=== PATIENT | male | born 1960 | race American Indian/Alaskan Native ===

== ENCOUNTER 2024-11-07 17:58 | Inpatient (IN) | payer BC, OTHER ==
[~2024-11-07] VITALS: Ht 167.6 cm; Wt 105.6 kg
[~2024-11-07 17:58] MED LIST: CYCL-1 PO
[2024-11-07] MEDS ORDERED: DICL100G59 TOP (18:24)
[2024-11-07] MEDS ORDERED: OMEP20CA16 PO (18:24)
[2024-11-07] MEDS: mag hydrox/Alum hydrox/simeth 30ml oral suspension PO ONE (18:37)
[2024-11-07] MEDS: LIDOcaine 2% Viscous 15ml cup MM ONE (18:37)
[2024-11-07 18:45] LABS: EOSINOPHILS # (AUTO) 0.3 X10'3 (0-0.9); HEMOGLOBIN 14.4 g/dl (14.0-17.9); MEAN CORPUSCULAR HGB CONC 33.5 g/dL (33.0-36.5); MONOCYTES % (AUTO) 8.2 % (2-12); NEUTROPHILS # (AUTO) 7.6 X10'3 (1.8-7.7); RED BLOOD COUNT 4.74 X10'6 (4.70-6.10); RED CELL DISTRIBUTION WIDTH 16.9 % (11.5-14.5)
[2024-11-07 18:46] LABS: BASOPHILS # (AUTO) 0.2 X10'3 (0-0.2); BASOPHILS % (AUTO) 1.4 % (0-1); EOSINOPHILS % (AUTO) 2.2 % (0-6); LYMPHOCYTES # (AUTO) 2.8 X10'3 (1.1-4.8); LYMPHOCYTES % (AUTO) 23.7 % (21-51); MEAN CORPUSCULAR HEMOGLOBIN 30.4 PG (27.0-31.0); MEAN CORPUSCULAR VOLUME 90.7 FL (78-98); MEAN PLATELET VOLUME 9.1 FL (7.4-10.4); NEUTROPHILS % (AUTO) 64.5 % (42-75); PLATELET COUNT 286 X10'3 (140-440); WHITE BLOOD COUNT 11.8 X10'3 (4.5-11.0)
[2024-11-07 18:51] LABS: D-DIMER 0.47 MG/L FEU (0-0.50)
[2024-11-07 19:01] LABS: ALBUMIN 3.7 G/DL (3.4-5.0); ANION GAP 9 (8-16); BLOOD UREA NITROGEN 15 MG/DL (7-18); BUN/CREATININE RATIO 13.8 (10.0-20.0); CALCIUM 9.1 MG/DL (8.5-10.1); CHLORIDE 105 MMOL/L (99-107); CREATININE 1.09 MG/DL (0.60-1.10); GLUCOSE 104 MG/DL (70-104); MAGNESIUM 1.9 MG/DL (1.5-2.4); POTASSIUM 3.5 MMOL/L (3.5-5.1); PRO BRAIN NATRIURETIC PEPTIDE 591 PG/ML (0-125); SODIUM 141 MMOL/L (135-145); TOTAL CARBON DIOXIDE 27.5 MMOL/L (24-32); eCRCL 63 ML/MIN; eGFR 69 ML/MIN
[2024-11-07] MEDS: heparin 10,000 units/1 ML INJ IV ONE ×2 (19:45→20:55)
[2024-11-07] MEDS ORDERED: potassium Cl 40MEQ/1/2NS 520ml 520 ML IV PRN (20:05)
[2024-11-07] MEDS ORDERED: morphine 2 MG/ML inj. syringe IV PRN (20:05)
[2024-11-07] MEDS: PERFLUTREN PROTEIN-A MICROSPHR (Optison) 0.22 MG/ML 3ML VIAL IV ONE (20:05)
[2024-11-07] MEDS ORDERED: potassium Cl 20 mEq SR tablet PO PRN ×2 (20:05)
[2024-11-07] MEDS ORDERED: magnesium sulf-water 4G/100mL 100 ML IV PRN (20:05)
[2024-11-07] MEDS ORDERED: magnesium Cl slow-release 64mg tablet PO PRN (20:05)
[2024-11-07] MEDS ORDERED: magnesium sulf-water 2g/50mL 50 ML IV PRN (20:05)
[2024-11-07 20:13] LABS: APTT 27 SECONDS (22-32); PROTHROMBIN TIME 10.6 SECONDS (9.0-12.0)
[2024-11-07] MEDS: MESSAGE TO NURSING IV ONE (20:35)
[2024-11-07 20:38] LABS: HEMOGLOBIN A1C 5.7 % (4.5-6.2)
[2024-11-07] MEDS: heparin 25,000 UNIT/250ml bag 250 ML IV PRN (20:57)
[2024-11-07] MEDS: aspirin 325mg tablet PO ONE (21:23)
[2024-11-07] MEDS: clopidogrel 75mg tablet PO SCH (23:18)
[2024-11-07] MEDS: metoprolol tartrate 25mg tablet PO SCH (23:19)
[2024-11-08] MEDS ORDERED: ASPI-1264 PO (00:27)
[2024-11-08] MEDS: magnesium oxide 400mg tablet PO ONE (00:46)
[2024-11-08] MEDS: METHYL SALICYLATE 15%/MENTHOL 1% CREAM-- 85GM TUBE TOP SCH (00:47)
[2024-11-08] MEDS ORDERED: nitroGLYCERIN 0.4mg SUBLingual tab SL PRN (00:50)
[2024-11-08 02:26] LABS: EOSINOPHILS # (AUTO) 0.3 X10'3 (0-0.9); HEMOGLOBIN 13.9 g/dl (14.0-17.9); LYMPHOCYTES # (AUTO) 2.9 X10'3 (1.1-4.8); MEAN PLATELET VOLUME 9.3 FL (7.4-10.4)
[2024-11-08 02:28] LABS: BASOPHILS # (AUTO) 0.2 X10'3 (0-0.2); BASOPHILS % (AUTO) 1.3 % (0-1); EOSINOPHILS % (AUTO) 2.2 % (0-6); HEMATOCRIT 41.3 % (42.0-52.0); LYMPHOCYTES % (AUTO) 23.8 % (21-51); MEAN CORPUSCULAR HEMOGLOBIN 30.2 PG (27.0-31.0); MEAN CORPUSCULAR HGB CONC 33.7 g/dL (33.0-36.5); MEAN CORPUSCULAR VOLUME 89.7 FL (78-98); MONOCYTES # (AUTO) 0.8 X10'3 (0-0.9); MONOCYTES % (AUTO) 6.7 % (2-12); NEUTROPHILS # (AUTO) 8.1 X10'3 (1.8-7.7); PLATELET COUNT 275 X10'3 (140-440); RED BLOOD COUNT 4.61 X10'6 (4.70-6.10); RED CELL DISTRIBUTION WIDTH 17.3 % (11.5-14.5); WHITE BLOOD COUNT 12.2 X10'3 (4.5-11.0)
[2024-11-08 02:51] LABS: ALANINE AMINOTRANSFERASE 30 U/L (12-78); ALBUMIN 3.5 G/DL (3.4-5.0); ALBUMIN/GLOBULIN RATIO 0.8 (1.1-1.5); ALKALINE PHOSPHATASE 92 IU/L (46-116); ANION GAP 7 (8-16); ASPARTATE AMINO TRANSFERASE 35 U/L (10-37); BILIRUBIN,TOTAL 0.4 MG/DL (0.1-1.0); BLOOD UREA NITROGEN 14 MG/DL (7-18); BUN/CREATININE RATIO 13.7 (10.0-20.0); CALCIUM 9.1 MG/DL (8.5-10.1); CHLORIDE 104 MMOL/L (99-107); CHOL/HDL RATIO 4.5 (0.00-4.99); CHOLESTEROL 218 MG/DL (0-200); CREATININE 1.02 MG/DL (0.60-1.10); GLUCOSE 107 MG/DL (70-104); HDL CHOLESTEROL 48 MG/DL (35-60); LDL CHOLESTEROL 143 MG/DL (50-100); PHOSPHORUS 3.2 MG/DL (2.3-4.5); POTASSIUM 3.8 MMOL/L (3.5-5.1); SODIUM 139 MMOL/L (135-145); THYROID STIMULATING HORMONE 2.68 ulU/ml (0.34-4.50); TOTAL CARBON DIOXIDE 27.7 MMOL/L (24-32); TOTAL PROTEIN 8.1 G/DL (6.4-8.2); TRIGLYCERIDES 111 MG/DL (20-135); eCRCL 68 ML/MIN; eGFR 74 ML/MIN
[2024-11-08 04:06] LABS: PROTHROMBIN TIME 10.9 SECONDS (9.0-12.0)
[2024-11-08] MEDS: MESSAGE TO NURSING IV ONE ×3 (04:50→19:50)
[2024-11-08] MEDS: heparin 10,000 units/1 ML INJ IV PRN (05:03)
[2024-11-08] MEDS: K and/or MAG REPLACEMENT MC SCH (08:18)
[2024-11-08] MEDS: atorvastatin 20mg tablet PO SCH (08:32)
[2024-11-08] MEDS: aspirin 81mg, enteric-coated 1 TAB TABLET.DR PO SCH (08:34)
[2024-11-08 12:02] LABS: APTT 35 SECONDS (22-32)
[2024-11-08 17:46] VITALS: BP 119/80; PULSE 86; RESP 18; TEMP 98.2; O2SAT 98
[2024-11-08 18:00] VITALS: BP 140/86; PULSE 85; RESP 20; TEMP 98.5; O2SAT 96
[2024-11-08 19:01] VITALS: RESP 18; O2SAT 97
[2024-11-08 20:00] VITALS: RESP 13; O2SAT 96
[2024-11-08 22:00] VITALS: BP 145/83; PULSE 82; RESP 21; TEMP 97.7; O2SAT 98
[2024-11-09] VITALS (16 sets, daily range): BP systolic 105–154; BP diastolic 67–99; PULSE 62–81; RESP 13–23; TEMP 97.6–98.2; O2SAT 94–99
[2024-11-09 02:13] LABS: BASOPHILS # (AUTO) 0.1 X10'3 (0-0.2); BASOPHILS % (AUTO) 0.8 % (0-1); EOSINOPHILS # (AUTO) 0.3 X10'3 (0-0.9); EOSINOPHILS % (AUTO) 2.7 % (0-6); HEMATOCRIT 42.5 % (42.0-52.0); HEMOGLOBIN 14.2 g/dl (14.0-17.9); LYMPHOCYTES # (AUTO) 3.3 X10'3 (1.1-4.8); LYMPHOCYTES % (AUTO) 30.1 % (21-51); MEAN CORPUSCULAR HEMOGLOBIN 29.9 PG (27.0-31.0); MEAN CORPUSCULAR HGB CONC 33.4 g/dL (33.0-36.5); MEAN CORPUSCULAR VOLUME 89.3 FL (78-98); MEAN PLATELET VOLUME 9.4 FL (7.4-10.4); MONOCYTES % (AUTO) 8.7 % (2-12); NEUTROPHILS # (AUTO) 6.4 X10'3 (1.8-7.7); NEUTROPHILS % (AUTO) 57.7 % (42-75); PLATELET COUNT 265 X10'3 (140-440); RED BLOOD COUNT 4.76 X10'6 (4.70-6.10); RED CELL DISTRIBUTION WIDTH 17.1 % (11.5-14.5); WHITE BLOOD COUNT 11.1 X10'3 (4.5-11.0)
[2024-11-09 02:27] LABS: APTT 42 SECONDS (22-32); INR 1.1 INR; PROTHROMBIN TIME 11.4 SECONDS (9.0-12.0)
[2024-11-09 02:28] LABS: ALANINE AMINOTRANSFERASE 31 U/L (12-78); ALBUMIN 3.4 G/DL (3.4-5.0); ALBUMIN/GLOBULIN RATIO 0.7 (1.1-1.5); ALKALINE PHOSPHATASE 96 IU/L (46-116); ANION GAP 6 (8-16); ASPARTATE AMINO TRANSFERASE 31 U/L (10-37); BILIRUBIN,TOTAL 0.6 MG/DL (0.1-1.0); BLOOD UREA NITROGEN 15 MG/DL (7-18); BUN/CREATININE RATIO 14.6 (10.0-20.0); CHLORIDE 105 MMOL/L (99-107); CREATININE 1.03 MG/DL (0.60-1.10); GLUCOSE 107 MG/DL (70-104); PHOSPHORUS 3.5 MG/DL (2.3-4.5); POTASSIUM 3.8 MMOL/L (3.5-5.1); SODIUM 139 MMOL/L (135-145); TOTAL CARBON DIOXIDE 27.8 MMOL/L (24-32); TOTAL PROTEIN 8.2 G/DL (6.4-8.2); eCRCL 67 ML/MIN; eGFR 73 ML/MIN
[2024-11-09] MEDS: MESSAGE TO NURSING IV ONE (02:55)
[2024-11-09] MEDS ORDERED: LIDOcaine 1% (10mg/ml) 2ml vial ONE (07:53)
[2024-11-09] MEDS ORDERED: fentaNYL/PF 50MCG/1 ML 2ML syringe ONE (07:53)
[2024-11-09] MEDS ORDERED: verapamil 2.5 mg/ml inj IV ONE (07:53)
[2024-11-09] MEDS ORDERED: midazolam 1 mg/ML 2ml injection ONE (07:53)
[2024-11-09] MEDS ORDERED: heparin 1,000unit/ml 10ml vial 10 ML ONE (07:54)
[2024-11-09] MEDS ORDERED: iohexol 350MG/ML 100ml bottle IV ONE (07:54)
[2024-11-09] MEDS ORDERED: nitroGLYCERIN 500mcg/5mL D5W 5 ML IV ONE (07:56)
[2024-11-09] MEDS ORDERED: ondansetron/PF 4mg/2ml inj IV PRN (09:45)
[2024-11-09] MEDS ORDERED: OXAZEpam 15mg capsule PO PRN (09:45)
[2024-11-09] MEDS ORDERED: HYDROcodone/acetaminophen 10/325mg tab PO PRN (09:45)
[2024-11-09] MEDS ORDERED: HYDROcodone/acetaminophen 5mg/325mg tablet PO PRN (09:45)
[2024-11-09] MEDS ORDERED: proCHLORperazine 10 MG/2 ml inj IV PRN (09:45)
[2024-11-09] MEDS ORDERED: aspirin 325mg tablet PO PRN (09:45)
[2024-11-09] MEDS: MESSAGE TO NURSING PO ONE ×2 (11:55)
[2024-11-09] MEDS: MESSAGE TO PHARMACY IJ ONE (11:55)
[2024-11-09] MEDS ORDERED: cefazolin 2gm/D5W 100mL 100 ML IV ONE (11:55)
[2024-11-09] MEDS ORDERED: VANCOMYCIN 1GM 200ML H20 (PEG) 200 ML IV ONE (11:55)
[2024-11-09] MEDS ORDERED: ceFAZolin 2gm in dextrose, iso 50 ML IV ONE (12:12)
[2024-11-09] MEDS: metoprolol succinate 25mg (24-HOUR) SR. Tablet PO SCH (12:29)
[2024-11-09] MEDS: DICLOFENAC SODIUM 1% gel 1 APPLIC APPLIC TP SCH (13:00)
[2024-11-09] MEDS ORDERED: ringers solution, lacted 1,000 ML IV ONE (16:40)
[2024-11-09 17:39] LABS: ABG BASE EXCESS 0.1 mmol/L (-2.0-3.0); ABG HCO3 24.2 mmol/L (21.0-28.0); ABG OXYGEN SATURATION 93.4 % (94.0-98.0); ABG PCO2 (T) 37.5 mmHg (35.0-48.0); ABG PH (T) 7.427 (7.350-7.450); ABG PO2 (T) 66.4 mmHg (83.0-108.0); ALLEN'S TEST POSITIVE; FCOHb 1.2 % (0.5-1.5); FHHb 6.5 % (0.0-5.0); FLOW 0 L/min; FMetHb 0.3 % (0.0-1.5); MODE ROOM AIR; PATIENT TEMPERATURE 36.8; TOTAL HEMOGLOBIN 15.2 G/dl (13.5-17.5)
[2024-11-09] MEDS: metoprolol tartrate 25mg tablet PO SCH (21:51)
[2024-11-10] VITALS (8 sets, daily range): BP systolic 101–134; BP diastolic 63–93; PULSE 64–80; RESP 15–21; TEMP 97.6–97.9; O2SAT 94–98
[2024-11-10] MEDS: mupirocin 2% nasal ointment 1gm UD NS ONE (05:05)
[2024-11-10] MEDS: famotidine/PF 10 mg/ml inj IV ONE (05:05)
[2024-11-10] MEDS ORDERED: LORazepam 2 mg/ml vial IV ONE (06:00)
[2024-11-10] MEDS: pantoprazole 40mg Tablet.DR PO SCH (07:43)
[2024-11-10] MEDS ORDERED: clopidogrel 75mg tablet PO SCH (08:00)
[2024-11-10 08:01] LABS: BASOPHILS # (AUTO) 0.1 X10'3 (0-0.2); EOSINOPHILS # (AUTO) 0.4 X10'3 (0-0.9); EOSINOPHILS % (AUTO) 3.5 % (0-6); MEAN CORPUSCULAR HGB CONC 33.4 g/dL (33.0-36.5); NEUTROPHILS # (AUTO) 7.2 X10'3 (1.8-7.7)
[2024-11-10 08:03] LABS: APTT 26 SECONDS (22-32); HEMATOCRIT 41.8 % (42.0-52.0); INR 1.1 INR; LYMPHOCYTES # (AUTO) 2.2 X10'3 (1.1-4.8); LYMPHOCYTES % (AUTO) 20.2 % (21-51); MEAN CORPUSCULAR HEMOGLOBIN 30.4 PG (27.0-31.0); MEAN CORPUSCULAR VOLUME 91.1 FL (78-98); MEAN PLATELET VOLUME 9.9 FL (7.4-10.4); MONOCYTES % (AUTO) 9.2 % (2-12); NEUTROPHILS % (AUTO) 66.1 % (42-75); PLATELET COUNT 263 X10'3 (140-440); RED BLOOD COUNT 4.59 X10'6 (4.70-6.10); RED CELL DISTRIBUTION WIDTH 17.1 % (11.5-14.5); WHITE BLOOD COUNT 10.8 X10'3 (4.5-11.0)
[2024-11-10 08:16] LABS: ALANINE AMINOTRANSFERASE 29 U/L (12-78); ALBUMIN 3.3 G/DL (3.4-5.0); ALBUMIN/GLOBULIN RATIO 0.7 (1.1-1.5); ALKALINE PHOSPHATASE 92 IU/L (46-116); ANION GAP 8 (8-16); ASPARTATE AMINO TRANSFERASE 23 U/L (10-37); BILIRUBIN,TOTAL 0.7 MG/DL (0.1-1.0); BLOOD UREA NITROGEN 15 MG/DL (7-18); BUN/CREATININE RATIO 13.6 (10.0-20.0); CALCIUM 8.8 MG/DL (8.5-10.1); CHLORIDE 104 MMOL/L (99-107); GLUCOSE 95 MG/DL (70-104); MAGNESIUM 2.1 MG/DL (1.5-2.4); POTASSIUM 3.9 MMOL/L (3.5-5.1); SODIUM 138 MMOL/L (135-145); TOTAL CARBON DIOXIDE 26.2 MMOL/L (24-32); TOTAL PROTEIN 8.2 G/DL (6.4-8.2); eCRCL 63 ML/MIN; eGFR 68 ML/MIN
[2024-11-10 08:44] LABS: GIANT PLATELET FEW; PLATELET ESTIMATE NORMAL
[2024-11-10 08:45] LABS: LARGE PLATELETS FEW
[2024-11-11] VITALS (7 sets, daily range): BP systolic 107–131; BP diastolic 71–87; PULSE 64–81; RESP 16–18; TEMP 97.6–98; O2SAT 94–99
[2024-11-11 07:54] LABS: BASOPHILS # (AUTO) 0.1 X10'3 (0-0.2); BASOPHILS % (AUTO) 0.9 % (0-1); EOSINOPHILS # (AUTO) 0.4 X10'3 (0-0.9); EOSINOPHILS % (AUTO) 3.5 % (0-6); HEMOGLOBIN 13.9 g/dl (14.0-17.9); LYMPHOCYTES # (AUTO) 1.4 X10'3 (1.1-4.8); LYMPHOCYTES % (AUTO) 12.7 % (21-51); MEAN CORPUSCULAR HEMOGLOBIN 29.9 PG (27.0-31.0); MEAN CORPUSCULAR HGB CONC 33.2 g/dL (33.0-36.5); MEAN PLATELET VOLUME 9.5 FL (7.4-10.4); NEUTROPHILS % (AUTO) 73.9 % (42-75); PLATELET COUNT 257 X10'3 (140-440); RED BLOOD COUNT 4.67 X10'6 (4.70-6.10); RED CELL DISTRIBUTION WIDTH 16.3 % (11.5-14.5); WHITE BLOOD COUNT 10.9 X10'3 (4.5-11.0)
[2024-11-11] MEDS: atorvastatin 20mg tablet PO SCH (07:54)
[2024-11-11 08:09] LABS: INR 1.1 INR; PROTHROMBIN TIME 11.5 SECONDS (9.0-12.0)
[2024-11-11 08:27] LABS: ALANINE AMINOTRANSFERASE 29 U/L (12-78); ALBUMIN 3.4 G/DL (3.4-5.0); ALBUMIN/GLOBULIN RATIO 0.7 (1.1-1.5); ALKALINE PHOSPHATASE 96 IU/L (46-116); ANION GAP 9 (8-16); ASPARTATE AMINO TRANSFERASE 22 U/L (10-37); BILIRUBIN,TOTAL 0.8 MG/DL (0.1-1.0); BLOOD UREA NITROGEN 20 MG/DL (7-18); BUN/CREATININE RATIO 17.9 (10.0-20.0); CALCIUM 8.8 MG/DL (8.5-10.1); CHLORIDE 103 MMOL/L (99-107); CREATININE 1.12 MG/DL (0.60-1.10); GLUCOSE 99 MG/DL (70-104); MAGNESIUM 2.1 MG/DL (1.5-2.4); PHOSPHORUS 3.2 MG/DL (2.3-4.5); POTASSIUM 3.6 MMOL/L (3.5-5.1); SODIUM 139 MMOL/L (135-145); TOTAL CARBON DIOXIDE 27.4 MMOL/L (24-32); TOTAL PROTEIN 8.3 G/DL (6.4-8.2); eCRCL 62 ML/MIN; eGFR 66 ML/MIN
[2024-11-11] MEDS: heparin 10,000 units/1 ML INJ IV ONE (09:21)
[2024-11-11] MEDS: heparin 25,000 UNIT/250ml bag 250 ML IV PRN (09:28)
[2024-11-11] MEDS: MESSAGE TO NURSING IV ONE ×2 (09:40→19:29)
[2024-11-11] MEDS: heparin 10,000 units/1 ML INJ IV PRN (19:24)
[2024-11-12] VITALS (8 sets, daily range): BP systolic 104–125; BP diastolic 64–79; PULSE 64–75; RESP 12–20; TEMP 97.2–98; O2SAT 96–99
[2024-11-12 02:12] LABS: BASOPHILS # (AUTO) 0.1 X10'3 (0-0.2); HEMATOCRIT 40.8 % (42.0-52.0); HEMOGLOBIN 13.8 g/dl (14.0-17.9); INR 1.1 INR; LYMPHOCYTES # (AUTO) 1.7 X10'3 (1.1-4.8); MEAN CORPUSCULAR HGB CONC 33.8 g/dL (33.0-36.5); MONOCYTES # (AUTO) 0.8 X10'3 (0-0.9); PROTHROMBIN TIME 11.5 SECONDS (9.0-12.0)
[2024-11-12 02:14] LABS: BASOPHILS % (AUTO) 1.4 % (0-1); EOSINOPHILS # (AUTO) 0.5 X10'3 (0-0.9); EOSINOPHILS % (AUTO) 4.6 % (0-6); LYMPHOCYTES % (AUTO) 16.8 % (21-51); MEAN CORPUSCULAR HEMOGLOBIN 30.5 PG (27.0-31.0); MEAN CORPUSCULAR VOLUME 90.2 FL (78-98); MEAN PLATELET VOLUME 9.2 FL (7.4-10.4); MONOCYTES % (AUTO) 8.2 % (2-12); PLATELET COUNT 239 X10'3 (140-440); RED BLOOD COUNT 4.52 X10'6 (4.70-6.10); RED CELL DISTRIBUTION WIDTH 16.5 % (11.5-14.5); WHITE BLOOD COUNT 10.1 X10'3 (4.5-11.0)
[2024-11-12 02:15] LABS: ALANINE AMINOTRANSFERASE 34 U/L (12-78); ALBUMIN 3.4 G/DL (3.4-5.0); ALBUMIN/GLOBULIN RATIO 0.7 (1.1-1.5); ALKALINE PHOSPHATASE 97 IU/L (46-116); ANION GAP 10 (8-16); ASPARTATE AMINO TRANSFERASE 23 U/L (10-37); BILIRUBIN,TOTAL 0.6 MG/DL (0.1-1.0); BLOOD UREA NITROGEN 19 MG/DL (7-18); BUN/CREATININE RATIO 17.9 (10.0-20.0); CHLORIDE 104 MMOL/L (99-107); CREATININE 1.06 MG/DL (0.60-1.10); GLUCOSE 107 MG/DL (70-104); MAGNESIUM 2.1 MG/DL (1.5-2.4); PHOSPHORUS 3.7 MG/DL (2.3-4.5); POTASSIUM 3.8 MMOL/L (3.5-5.1); SODIUM 139 MMOL/L (135-145); TOTAL CARBON DIOXIDE 25.4 MMOL/L (24-32); TOTAL PROTEIN 8.1 G/DL (6.4-8.2); eCRCL 65 ML/MIN; eGFR 71 ML/MIN
[2024-11-12] MEDS: MESSAGE TO NURSING IV ONE ×3 (03:39→17:45)
[2024-11-12] MEDS: MESSAGE TO NURSING PO ONE (10:50)
[2024-11-12] MEDS: MESSAGE TO PHARMACY IJ ONE (10:50)
[2024-11-12] MEDS ORDERED: mupirocin 2% ointment 22GM NS SCH (20:00)
[2024-11-12] MEDS: mupirocin 2% nasal ointment 1gm UD NS SCH (20:45)
[2024-11-13] VITALS (26 sets, daily range): BP systolic 88–121; BP diastolic 43–74; PULSE 44–90; RESP 9–22; TEMP 97.1–97.2; O2SAT 94–99
[2024-11-13] MEDS: heparin 25,000 UNIT/250ml bag 250 ML IV PRN (00:01)
[2024-11-13] MEDS: MESSAGE TO NURSING IV ONE (00:02)
[2024-11-13 04:00] LABS: BASOPHILS # (AUTO) 0.1 X10'3 (0-0.2); BASOPHILS % (AUTO) 1.1 % (0-1); EOSINOPHILS # (AUTO) 0.5 X10'3 (0-0.9); EOSINOPHILS % (AUTO) 4.5 % (0-6); HEMATOCRIT 40.5 % (42.0-52.0); HEMOGLOBIN 13.5 g/dl (14.0-17.9); LYMPHOCYTES # (AUTO) 1.7 X10'3 (1.1-4.8); LYMPHOCYTES % (AUTO) 15.8 % (21-51); MEAN CORPUSCULAR HGB CONC 33.2 g/dL (33.0-36.5); MEAN CORPUSCULAR VOLUME 90.3 FL (78-98); MEAN PLATELET VOLUME 9.6 FL (7.4-10.4); MONOCYTES # (AUTO) 0.9 X10'3 (0-0.9); MONOCYTES % (AUTO) 8.7 % (2-12); NEUTROPHILS # (AUTO) 7.4 X10'3 (1.8-7.7); NEUTROPHILS % (AUTO) 69.9 % (42-75); PLATELET COUNT 244 X10'3 (140-440); RED BLOOD COUNT 4.48 X10'6 (4.70-6.10); RED CELL DISTRIBUTION WIDTH 16.1 % (11.5-14.5); WHITE BLOOD COUNT 10.6 X10'3 (4.5-11.0)
[2024-11-13 04:15] LABS: ALANINE AMINOTRANSFERASE 44 U/L (12-78); ALBUMIN 3.4 G/DL (3.4-5.0); ALBUMIN/GLOBULIN RATIO 0.7 (1.1-1.5); ALKALINE PHOSPHATASE 97 IU/L (46-116); ANION GAP 7 (8-16); ASPARTATE AMINO TRANSFERASE 27 U/L (10-37); BILIRUBIN,TOTAL 0.5 MG/DL (0.1-1.0); BLOOD UREA NITROGEN 18 MG/DL (7-18); BUN/CREATININE RATIO 14.5 (10.0-20.0); CALCIUM 8.8 MG/DL (8.5-10.1); CHLORIDE 105 MMOL/L (99-107); CREATININE 1.24 MG/DL (0.60-1.10); GLUCOSE 102 MG/DL (70-104); POTASSIUM 3.6 MMOL/L (3.5-5.1); SODIUM 138 MMOL/L (135-145); TOTAL CARBON DIOXIDE 26.5 MMOL/L (24-32); TOTAL PROTEIN 8.1 G/DL (6.4-8.2); eCRCL 56 ML/MIN; eGFR 59 ML/MIN
[2024-11-13] MEDS: VANCOMYCIN 1,500MG in normal saline IV soln 300 ML IV ONE (05:30)
[2024-11-13] MEDS ORDERED: VANCOMYCIN/H2O 1.5g/300mL PB 300 ML IV ONE (05:30)
[2024-11-13] MEDS: ceFAZolin 2gm in dextrose, iso 50 ML IV ONE (05:30)
[2024-11-13] MEDS ORDERED: BUPIVAcaine 0.5% inj/PF 30 ML ONE (06:46)
[2024-11-13] MEDS ORDERED: ceFAZolin 1000mg inj ONE (06:46)
[2024-11-13] MEDS: famotidine 20mg tablet PO ONE (07:03)
[2024-11-13] MEDS: gabapentin 400mg capsule PO ONE (07:03)
[2024-11-13] MEDS: LORazepam 2 mg/ml vial IV ONE (07:44)
[2024-11-13] MEDS ORDERED: MIDAZolam 5mg/ml 2ml vial ONE (08:16)
[2024-11-13] MEDS ORDERED: SUfentanil 50mcg/ml 1ml amp IV ONE (08:16)
[2024-11-13] MEDS ORDERED: sevoflurane 250ml liquid IH ONE (08:26)
[2024-11-13] MEDS ORDERED: dextrose 50%-water 50ml dispensing syringe IV PRN ×2 (08:30→15:40)
[2024-11-13] MEDS ORDERED: insulin glargine (Lantus) pen - multi-dose SQ PRN ×2 (08:30→15:40)
[2024-11-13] MEDS: Insulin Reg/NS 100units/100mL 100 ML IV SCH (08:30)
[2024-11-13] MEDS ORDERED: sod chloride 0.9% 10ml flush syringe IV SCH (08:30)
[2024-11-13 09:06] LABS: ABG BASE EXCESS -0.9 mmol/L (-2.0-3.0); ABG HCO3 25.3 mmol/L (21.0-28.0); ABG OXYGEN SATURATION 98.7 % (94.0-98.0); ABG PCO2 47.6 mmHg (35.0-48.0); ABG PH 7.343 (7.350-7.450); ABG PO2 144.1 mmHg (83.0-108.0); CL (ABG) 102 mmol/L (98-107); FCOHb 0.4 % (0.5-1.5); FHHb 1.3 % (0.0-5.0); FMetHb 0.3 % (0.0-1.5); GLUCOSE (ABG) 101 mg/dl (65-95); IONIZED CA (ABG) 1.21 mmol/L (1.15-1.33); K (ABG) 4.1 mmol/L (3.40-4.50); TOTAL HEMOGLOBIN 13.3 G/dl (13.5-17.5)
[2024-11-13] MEDS ORDERED: rocuronium 10mg/ml inj IV ONE ×4 (09:36→11:02)
[2024-11-13] MEDS ORDERED: propofol inj 20 ML IV ONE (09:37)
[2024-11-13] MEDS ORDERED: ePHEDrine 50MG/ML INJ. ONE (09:37)
[2024-11-13] MEDS: papaverine 30 mg/ml 2ml inj. IA ONE (10:07)
[2024-11-13 10:48] LABS: ABG BASE EXCESS -2.3 mmol/L (-2.0-3.0); ABG HCO3 25.1 mmol/L (21.0-28.0); ABG PCO2 54.1 mmHg (35.0-48.0); ABG PH 7.284 (7.350-7.450); CL (ABG) 103 mmol/L (98-107); FCOHb 0.5 % (0.5-1.5); FHHb 28.3 % (0.0-5.0); FMetHb 0.3 % (0.0-1.5); FO2Hb 70.9 % (94.0-98.0); GLUCOSE (ABG) 100 mg/dl (65-95); IONIZED CA (ABG) 1.18 mmol/L (1.15-1.33); K (ABG) 4.2 mmol/L (3.40-4.50); TOTAL HEMOGLOBIN 12.9 G/dl (13.5-17.5)
[2024-11-13 11:47] LABS: ABG BASE EXCESS VENOUS 1.4 mmol/L (-2.0-3.0); ABG HCO3 VENOUS 26.7 mmol/L (22.0-29.0); ABG OXYGEN SATURATION VENOUS 89.4 % (60.0-85.0); ABG PCO2 VENOUS 45.6 mmHg (38.0-54.0); ABG PH (VENOUS) 7.386 (7.320-7.430); CL (ABG) 102 mmol/L (98-107); FCOHb VENOUS 0.2 % (0.5-1.5); FHHb VENOUS 10.5 %; FMetHb VENOUS 0.3 % (0.5-1.5); GLUCOSE (ABG) 108 mg/dl (65-95); IONIZED CA (ABG) 1.01 mmol/L (1.15-1.33); K (ABG) 5.3 mmol/L (3.40-4.50); TOTAL HEMOGLOBIN 9.6 G/dl (13.5-17.5)
[2024-11-13 11:50] LABS: ABG BASE EXCESS 1.2 mmol/L (-2.0-3.0); ABG HCO3 26.1 mmol/L (21.0-28.0); ABG OXYGEN SATURATION 99.4 % (94.0-98.0); ABG PCO2 42.4 mmHg (35.0-48.0); ABG PH 7.407 (7.350-7.450); CL (ABG) 102 mmol/L (98-107); FCOHb 0.1 % (0.5-1.5); FHHb 0.6 % (0.0-5.0); FMetHb 0.3 % (0.0-1.5); GLUCOSE (ABG) 108 mg/dl (65-95); IONIZED CA (ABG) 1.03 mmol/L (1.15-1.33); TOTAL HEMOGLOBIN 9.8 G/dl (13.5-17.5)
[2024-11-13 12:24] LABS: ABG BASE EXCESS -2.3 mmol/L (-2.0-3.0); ABG HCO3 23.2 mmol/L (21.0-28.0); ABG OXYGEN SATURATION 99.3 % (94.0-98.0); ABG PCO2 42.7 mmHg (35.0-48.0); ABG PH 7.352 (7.350-7.450); CL (ABG) 103 mmol/L (98-107); FCOHb 0.3 % (0.5-1.5); FHHb 0.7 % (0.0-5.0); FMetHb 0.3 % (0.0-1.5); FO2Hb 98.7 % (94.0-98.0); GLUCOSE (ABG) 152 mg/dl (65-95); IONIZED CA (ABG) 1.09 mmol/L (1.15-1.33); TOTAL HEMOGLOBIN 10.3 G/dl (13.5-17.5)
[2024-11-13 12:56] LABS: ABG BASE EXCESS -1.9 mmol/L (-2.0-3.0); ABG HCO3 23.8 mmol/L (21.0-28.0); ABG OXYGEN SATURATION 99.2 % (94.0-98.0); ABG PCO2 44.3 mmHg (35.0-48.0); ABG PH 7.348 (7.350-7.450); CL (ABG) 103 mmol/L (98-107); FCOHb 0.3 % (0.5-1.5); FHHb 0.8 % (0.0-5.0); FMetHb 0.3 % (0.0-1.5); FO2Hb 98.6 % (94.0-98.0); GLUCOSE (ABG) 185 mg/dl (65-95); IONIZED CA (ABG) 1.09 mmol/L (1.15-1.33); K (ABG) 5.4 mmol/L (3.40-4.50); TOTAL HEMOGLOBIN 10.6 G/dl (13.5-17.5)
[2024-11-13 13:35] LABS: ABG BASE EXCESS -1.4 mmol/L (-2.0-3.0); ABG HCO3 24.6 mmol/L (21.0-28.0); ABG OXYGEN SATURATION 99.2 % (94.0-98.0); ABG PCO2 47.1 mmHg (35.0-48.0); ABG PH 7.335 (7.350-7.450); ABG PO2 297.8 mmHg (83.0-108.0); CL (ABG) 103 mmol/L (98-107); FCOHb 0.1 % (0.5-1.5); FHHb 0.8 % (0.0-5.0); FMetHb 0.3 % (0.0-1.5); FO2Hb 98.8 % (94.0-98.0); GLUCOSE (ABG) 196 mg/dl (65-95); IONIZED CA (ABG) 1.72 mmol/L (1.15-1.33); TOTAL HEMOGLOBIN 9.4 G/dl (13.5-17.5)
[2024-11-13] MEDS ORDERED: albumin (Human) 5% 250ml 250 ML IV ONE ×4 (14:07→14:48)
[2024-11-13 14:09] LABS: ACTIVATED CLOTTING TIME 107 SEC (101-148)
[2024-11-13 14:10] LABS: ABG BASE EXCESS VENOUS -3.6 mmol/L (-2.0-3.0); ABG HCO3 VENOUS 23.1 mmol/L (22.0-29.0); ABG OXYGEN SATURATION VENOUS 77.5 % (60.0-85.0); ABG PCO2 VENOUS 49.5 mmHg (38.0-54.0); ABG PH (VENOUS) 7.287 (7.320-7.430); ABG PO2 VENOUS 46.1 mmHg (23.0-48.0); CL (ABG) 105 mmol/L (98-107); FCOHb VENOUS 1.2 % (0.5-1.5); FHHb VENOUS 22.2 %; FMetHb VENOUS 0.3 % (0.5-1.5); FO2Hb VENOUS 76.3 % (0-80.0); GLUCOSE (ABG) 164 mg/dl (65-95); IONIZED CA (ABG) 1.28 mmol/L (1.15-1.33); K (ABG) 4.7 mmol/L (3.40-4.50); TOTAL HEMOGLOBIN 10.1 G/dl (13.5-17.5)
[2024-11-13] MEDS ORDERED: heparin 1,000unit/ml 10ml vial 10 ML ONE (14:32)
[2024-11-13 14:54] LABS: ABG BASE EXCESS -4.8 mmol/L (-2.0-3.0); ABG HCO3 21.2 mmol/L (21.0-28.0); ABG PCO2 42.9 mmHg (35.0-48.0); ABG PH 7.311 (7.350-7.450); CL (ABG) 106 mmol/L (98-107); FCOHb 0.2 % (0.5-1.5); FHHb 29.2 % (0.0-5.0); FO2Hb 70.6 % (94.0-98.0); GLUCOSE (ABG) 146 mg/dl (65-95); IONIZED CA (ABG) 1.67 mmol/L (1.15-1.33); K (ABG) 4.3 mmol/L (3.40-4.50); TOTAL HEMOGLOBIN 10.9 G/dl (13.5-17.5)
[2024-11-13 14:55] LABS: ACTIVATED CLOTTING TIME 139 SEC (101-148)
[2024-11-13] MEDS ORDERED: normal saline 250ml IV soln 250 ML IV PRN (15:40)
[2024-11-13] MEDS ORDERED: Neutra Phos packet PO PRN (15:40)
[2024-11-13] MEDS ORDERED: bisacodyl 10mg suppository rectal RC PRN (15:40)
[2024-11-13] MEDS ORDERED: magnesium hydroxide 30ml (MOM) UD suspension PO PRN (15:40)
[2024-11-13] MEDS ORDERED: sodium phosphate inj. 30 MMOL in dextrose 5%-water 250 ML IV PRN (15:40)
[2024-11-13] MEDS ORDERED: morphine 4 MG/ML inj SYRINge IV PRN (15:40)
[2024-11-13] MEDS ORDERED: sodium phosphate inj. 15 MMOL in dextrose 5%-water 250 ML IV PRN (15:40)
[2024-11-13] MEDS ORDERED: potassium Cl 40MEQ/270ML bag 250 ML IV PRN (15:40)
[2024-11-13] MEDS ORDERED: magnesium sulf-water 4G/100mL 100 ML IV PRN (15:40)
[2024-11-13] MEDS ORDERED: Insulin Reg/NS 100units/100mL 100 ML IV SCH (15:40)
[2024-11-13] MEDS ORDERED: niCARDipine-NS 40mg/200ml IVPB 200 ML IV PRN (15:40)
[2024-11-13] MEDS ORDERED: potassium Cl 40MEQ/1/2NS 520ml 520 ML IV PRN (15:40)
[2024-11-13] MEDS ORDERED: mineral oil 133ml enema RC PRN (15:40)
[2024-11-13] MEDS ORDERED: metoclopramide 5 mg/ml inj IV PRN (15:40)
[2024-11-13] MEDS ORDERED: potassium CL 10mEq/100ml bag 100 ML IV PRN (15:40)
[2024-11-13] MEDS ORDERED: nitroGLYCERIN-Tridil 50MG/D5W 250 ML IV PRN (15:40)
[2024-11-13] MEDS ORDERED: milrinone (Primacor) 20mg/D5W 100 ML IV PRN (15:40)
[2024-11-13] MEDS ORDERED: ondansetron/PF 4mg/2ml inj IV PRN (15:40)
[2024-11-13] MEDS ORDERED: acetaminophen 325mg tablet PO PRN (15:40)
[2024-11-13] MEDS ORDERED: potassium Cl 20 mEq SR tablet PO PRN (15:40)
[2024-11-13 16:01] LABS: ABG OXYGEN SATURATION 94.4 % (94.0-98.0); ABG PCO2 (T) 42.3 mmHg (35.0-48.0); ABG PO2 (T) 76.5 mmHg (83.0-108.0); FCOHb 0.7 % (0.5-1.5); FHHb 5.5 % (0.0-5.0); FMetHb 0.3 % (0.0-1.5); FO2Hb 93.5 % (94.0-98.0); MODE VENT - SIMV; PATIENT TEMPERATURE 36.3; PEEP 5 cm H2O; RESPIRATORY RATE 12 b/min; TIDAL VOLUME 600 mL
[2024-11-13] MEDS: albumin (Human) 5% 250ml 250 ML IV PRN (16:15)
[2024-11-13] MEDS: sodium chloride 0.45% 1,000 ML IV SCH (16:20)
[2024-11-13 16:22] LABS: BASOPHILS # (AUTO) 0.1 X10'3 (0-0.2); BASOPHILS % (AUTO) 0.4 % (0-1); EOSINOPHILS % (AUTO) 0.1 % (0-6); HEMOGLOBIN 10.2 g/dl (14.0-17.9); LYMPHOCYTES # (AUTO) 1.1 X10'3 (1.1-4.8); MEAN CORPUSCULAR HEMOGLOBIN 30.4 PG (27.0-31.0); MEAN CORPUSCULAR VOLUME 92.2 FL (78-98); MEAN PLATELET VOLUME 9.4 FL (7.4-10.4); MONOCYTES # (AUTO) 1.1 X10'3 (0-0.9); MONOCYTES % (AUTO) 5.1 % (2-12); NEUTROPHILS # (AUTO) 18.8 X10'3 (1.8-7.7); NEUTROPHILS % (AUTO) 89.4 % (42-75); PLATELET COUNT 119 X10'3 (140-440); RED BLOOD COUNT 3.36 X10'6 (4.70-6.10); RED CELL DISTRIBUTION WIDTH 16.8 % (11.5-14.5)
[2024-11-13] MEDS: ceFAZolin/D5W- 1GM premix 50 ML IV SCH (16:24)
[2024-11-13 16:56] LABS: ALBUMIN 3.2 G/DL (3.4-5.0); ALKALINE PHOSPHATASE 46 IU/L (46-116); ASPARTATE AMINO TRANSFERASE 37 U/L (10-37); BLOOD UREA NITROGEN 15 MG/DL (7-18); BUN/CREATININE RATIO 12.8 (10.0-20.0); CHLORIDE 110 MMOL/L (99-107); CREATININE 1.17 MG/DL (0.60-1.10); SODIUM 143 MMOL/L (135-145); eCRCL 59 ML/MIN; eGFR 63 ML/MIN
[2024-11-13 17:02] LABS: ALANINE AMINOTRANSFERASE 20 U/L (12-78); ALBUMIN/GLOBULIN RATIO 1.5 (1.1-1.5); ANION GAP 8 (8-16); CALCIUM 8.5 MG/DL (8.5-10.1); GLUCOSE 161 MG/DL (70-104); MAGNESIUM 2.2 MG/DL (1.5-2.4); PHOSPHORUS 3.7 MG/DL (2.3-4.5); POTASSIUM 4.3 MMOL/L (3.5-5.1); TOTAL CARBON DIOXIDE 24.6 MMOL/L (24-32); TOTAL PROTEIN 5.3 G/DL (6.4-8.2)
[2024-11-13] MEDS ORDERED: FENTANYL-0.9 % NACL/PF 100 ML IV SCH (17:20)
[2024-11-13] MEDS: ipratropium/albuterol 3ml nebule NEB STA (17:29)
[2024-11-13] MEDS: morphine 10mg/ml inj. IV ONE (17:29)
[2024-11-13] MEDS: propofol 1000mg/100ml bottle 100 ML IV SCH (17:30)
[2024-11-13 17:31] LABS: APTT 31 SECONDS (22-32); FIBRINOGEN 149 MG/DL (177-424); INR 1.3 INR; PROTHROMBIN TIME 13.7 SECONDS (9.0-12.0)
[2024-11-13] MEDS: ipratropium/albuterol 3ml nebule NEB SCH (19:25)
[2024-11-13] MEDS: sennosides/docusate sodium tablet PO SCH (20:00)
[2024-11-13] MEDS: atorvastatin 10mg tablet PO SCH (20:04)
[2024-11-13] MEDS: VANCOMYCIN 1GM 200ML H20 (PEG) 200 ML IV SCH (20:10)
[2024-11-13] MEDS: dexmedetomidin/NS 400mcg/100ml 100 ML IV SCH (20:11)
[2024-11-13] MEDS: mupirocin 2% nasal ointment 1gm UD NS SCH (20:11)
[2024-11-13 21:32] LABS: BASOPHILS # (AUTO) 0.1 X10'3 (0-0.2); BASOPHILS % (AUTO) 0.3 % (0-1); EOSINOPHILS % (AUTO) 0 % (0-6); HEMATOCRIT 28.6 % (42.0-52.0); HEMOGLOBIN 9.2 g/dl (14.0-17.9); LYMPHOCYTES # (AUTO) 0.6 X10'3 (1.1-4.8); LYMPHOCYTES % (AUTO) 3.3 % (21-51); MEAN CORPUSCULAR HEMOGLOBIN 29.9 PG (27.0-31.0); MEAN CORPUSCULAR HGB CONC 32.3 g/dL (33.0-36.5); MEAN CORPUSCULAR VOLUME 92.6 FL (78-98); MEAN PLATELET VOLUME 9.5 FL (7.4-10.4); MONOCYTES # (AUTO) 0.6 X10'3 (0-0.9); MONOCYTES % (AUTO) 3.4 % (2-12); NEUTROPHILS # (AUTO) 17.2 X10'3 (1.8-7.7); PLATELET COUNT 128 X10'3 (140-440); RED BLOOD COUNT 3.09 X10'6 (4.70-6.10); RED CELL DISTRIBUTION WIDTH 16.9 % (11.5-14.5); WHITE BLOOD COUNT 18.5 X10'3 (4.5-11.0)
[2024-11-13 21:46] LABS: ALBUMIN 3.9 G/DL (3.4-5.0); ANION GAP 14 (8-16); BLOOD UREA NITROGEN 17 MG/DL (7-18); BUN/CREATININE RATIO 11.5 (10.0-20.0); CALCIUM 8.5 MG/DL (8.5-10.1); CHLORIDE 109 MMOL/L (99-107); CREATININE 1.48 MG/DL (0.60-1.10); GLUCOSE 194 MG/DL (70-104); MAGNESIUM 2.2 MG/DL (1.5-2.4); PHOSPHORUS 3.4 MG/DL (2.3-4.5); SODIUM 143 MMOL/L (135-145); TOTAL CARBON DIOXIDE 19.9 MMOL/L (24-32); TRIGLYCERIDES 51 MG/DL (20-135); eCRCL 47 ML/MIN; eGFR 48 ML/MIN
[2024-11-13] MEDS: gabapentin 300mg capsule PO SCH (22:28)
[2024-11-13] MEDS: magnesium sulf-water 2g/50mL 50 ML IV PRN (22:28)
[2024-11-13] MEDS: potassium Cl 20mEq/100mL bag 100 ML IV PRN (22:29)
[2024-11-13] MEDS: NORepinephrine 8mg/ 250ml NS 250 ML IV PRN (23:26)
[2024-11-13] MEDS: milrinone (Primacor) 20mg/D5W 100 ML IV PRN (23:27)
[2024-11-14] VITALS (37 sets, daily range): BP systolic 94–155; BP diastolic 53–74; PULSE 77–102; RESP 13–28; O2SAT 91–98
[2024-11-14 03:14] LABS: BASOPHILS % (AUTO) 0.3 % (0-1); EOSINOPHILS % (AUTO) 0 % (0-6); HEMATOCRIT 27.9 % (42.0-52.0); LYMPHOCYTES # (AUTO) 0.8 X10'3 (1.1-4.8); LYMPHOCYTES % (AUTO) 4.7 % (21-51); MEAN CORPUSCULAR HEMOGLOBIN 29.6 PG (27.0-31.0); MEAN CORPUSCULAR HGB CONC 32.3 g/dL (33.0-36.5); MEAN CORPUSCULAR VOLUME 91.6 FL (78-98); MEAN PLATELET VOLUME 9.8 FL (7.4-10.4); MONOCYTES # (AUTO) 0.7 X10'3 (0-0.9); MONOCYTES % (AUTO) 4.6 % (2-12); NEUTROPHILS # (AUTO) 14.4 X10'3 (1.8-7.7); NEUTROPHILS % (AUTO) 90.4 % (42-75); PLATELET COUNT 122 X10'3 (140-440); RED BLOOD COUNT 3.04 X10'6 (4.70-6.10); RED CELL DISTRIBUTION WIDTH 16.5 % (11.5-14.5); WHITE BLOOD COUNT 15.9 X10'3 (4.5-11.0)
[2024-11-14 03:22] LABS: APTT 28 SECONDS (22-32); INR 1.2 INR; PROTHROMBIN TIME 12.4 SECONDS (9.0-12.0)
[2024-11-14 03:29] LABS: ABG BASE EXCESS -3.9 mmol/L (-2.0-3.0); ABG HCO3 20.8 mmol/L (21.0-28.0); ABG OXYGEN SATURATION 92.8 % (94.0-98.0); ABG PCO2 (T) 35.3 mmHg (35.0-48.0); ABG PH (T) 7.385 (7.350-7.450); ABG PO2 (T) 67.1 mmHg (83.0-108.0); FCOHb 0.3 % (0.5-1.5); FHHb 7.2 % (0.0-5.0); FMetHb 0.3 % (0.0-1.5); FO2Hb 92.2 % (94.0-98.0); MODE VENT - CPAP; PATIENT TEMPERATURE 36.7; PEEP 5 cm H2O; TOTAL HEMOGLOBIN 9.6 G/dl (13.5-17.5)
[2024-11-14 03:45] LABS: ALANINE AMINOTRANSFERASE 20 U/L (12-78); ALBUMIN 3.6 G/DL (3.4-5.0); ALBUMIN/GLOBULIN RATIO 1.5 (1.1-1.5); ALKALINE PHOSPHATASE 44 IU/L (46-116); ANION GAP 14 (8-16); ASPARTATE AMINO TRANSFERASE 37 U/L (10-37); BILIRUBIN,TOTAL 0.7 MG/DL (0.1-1.0); BLOOD UREA NITROGEN 14 MG/DL (7-18); BUN/CREATININE RATIO 10.7 (10.0-20.0); CALCIUM 8.4 MG/DL (8.5-10.1); CHLORIDE 110 MMOL/L (99-107); CREATININE 1.31 MG/DL (0.60-1.10); GLUCOSE 152 MG/DL (70-104); MAGNESIUM 2.7 MG/DL (1.5-2.4); PHOSPHORUS 2.4 MG/DL (2.3-4.5); SODIUM 144 MMOL/L (135-145); TOTAL CARBON DIOXIDE 20.5 MMOL/L (24-32); TRIGLYCERIDES 98 MG/DL (20-135); eCRCL 53 ML/MIN; eGFR 55 ML/MIN
[2024-11-14] MEDS ORDERED: ipratropium/albuterol 3ml nebule NEB PRN (07:50)
[2024-11-14] MEDS: metoprolol tartrate 12.5mg (1/2 tablet) PO SCH (08:00)
[2024-11-14] MEDS: aspirin 81mg tab.chew PO SCH (08:53)
[2024-11-14] MEDS: HYDROcodone/acetaminophen 10/325mg tab PO PRN (09:54)
[2024-11-14 10:11] LABS: ABG OXYGEN SATURATION 71.5 % (94.0-98.0); ABG PO2 42.6 mmHg (83.0-108.0)
[2024-11-14 10:12] LABS: ABG PO2 329.2 mmHg (83.0-108.0)
[2024-11-14 10:13] LABS: ABG PO2 323.9 mmHg (83.0-108.0)
[2024-11-14 10:13] LABS: ABG OXYGEN SATURATION 70.7 % (94.0-98.0); ABG PO2 41.9 mmHg (83.0-108.0)
[2024-11-14] MEDS: morphine 2 MG/ML inj. syringe IV PRN (19:57)
[2024-11-15] VITALS (24 sets, daily range): BP systolic 102–139; BP diastolic 59–90; PULSE 78–96; RESP 14–29; TEMP 97.5–98.6; O2SAT 92–97
[2024-11-15 02:39] LABS: BASOPHILS % (AUTO) 0.1 % (0-1); EOSINOPHILS % (AUTO) 0 % (0-6); HEMATOCRIT 25.8 % (42.0-52.0); HEMOGLOBIN 8.4 g/dl (14.0-17.9); LYMPHOCYTES # (AUTO) 1.8 X10'3 (1.1-4.8); LYMPHOCYTES % (AUTO) 7.1 % (21-51); MEAN CORPUSCULAR HEMOGLOBIN 29.8 PG (27.0-31.0); MEAN CORPUSCULAR HGB CONC 32.5 g/dL (33.0-36.5); MEAN CORPUSCULAR VOLUME 91.8 FL (78-98); MEAN PLATELET VOLUME 9.8 FL (7.4-10.4); MONOCYTES # (AUTO) 2.2 X10'3 (0-0.9); MONOCYTES % (AUTO) 8.9 % (2-12); NEUTROPHILS # (AUTO) 21.1 X10'3 (1.8-7.7); NEUTROPHILS % (AUTO) 83.9 % (42-75); PLATELET COUNT 117 X10'3 (140-440); RED BLOOD COUNT 2.81 X10'6 (4.70-6.10)
[2024-11-15 02:46] LABS: WHITE BLOOD COUNT 25.1 X10'3 (4.5-11.0)
[2024-11-15 02:56] LABS: ALBUMIN 3.3 G/DL (3.4-5.0); ANION GAP 8 (8-16); BLOOD UREA NITROGEN 18 MG/DL (7-18); BUN/CREATININE RATIO 17.6 (10.0-20.0); CALCIUM 8.3 MG/DL (8.5-10.1); CHLORIDE 106 MMOL/L (99-107); CREATININE 1.02 MG/DL (0.60-1.10); GLUCOSE 147 MG/DL (70-104); MAGNESIUM 2.2 MG/DL (1.5-2.4); POTASSIUM 4.4 MMOL/L (3.5-5.1); SODIUM 140 MMOL/L (135-145); TOTAL CARBON DIOXIDE 26.3 MMOL/L (24-32); eCRCL 68 ML/MIN; eGFR 74 ML/MIN
[2024-11-15 03:10] LABS: TOTAL CELLS COUNTED 100
[2024-11-15] MEDS: furosemide 40mg/4ml inj IV ONE (08:46)
[2024-11-15] MEDS: pantoprazole 40mg Tablet.DR PO SCH (08:48)
[2024-11-15] MEDS ORDERED: potassium Cl 20 mEq SR tablet PO PRN ×2 (11:10)
[2024-11-15] MEDS ORDERED: potassium Cl 20mEq/100mL bag 100 ML IV PRN (11:10)
[2024-11-15] MEDS ORDERED: magnesium sulf-water 2g/50mL 50 ML IV PRN (11:10)
[2024-11-15] MEDS ORDERED: magnesium sulf-water 4G/100mL 100 ML IV PRN (11:10)
[2024-11-15] MEDS ORDERED: potassium Cl 40MEQ/270ML bag 250 ML IV PRN (11:10)
[2024-11-15] MEDS ORDERED: potassium Cl 40MEQ/1/2NS 520ml 520 ML IV PRN (11:10)
[2024-11-15] MEDS ORDERED: potassium CL 10mEq/100ml bag 100 ML IV PRN (11:10)
[2024-11-15] MEDS: magnesium Cl slow-release 64mg tablet PO SCH (19:53)
[2024-11-16] VITALS (10 sets, daily range): BP systolic 102–126; BP diastolic 59–76; PULSE 76–93; RESP 15–24; TEMP 97.2–100; O2SAT 91–96
[2024-11-16] MEDS: HYDROcodone/acetaminophen 10/325mg tab PO PRN (00:01)
[2024-11-16 06:20] LABS: BASOPHILS # (AUTO) 0.1 X10'3 (0-0.2); BASOPHILS % (AUTO) 0.4 % (0-1); EOSINOPHILS # (AUTO) 0.1 X10'3 (0-0.9); EOSINOPHILS % (AUTO) 0.4 % (0-6); HEMATOCRIT 26.1 % (42.0-52.0); HEMOGLOBIN 8.4 g/dl (14.0-17.9); LYMPHOCYTES # (AUTO) 2.8 X10'3 (1.1-4.8); MEAN CORPUSCULAR HEMOGLOBIN 29.4 PG (27.0-31.0); MEAN CORPUSCULAR HGB CONC 32.1 g/dL (33.0-36.5); MEAN CORPUSCULAR VOLUME 91.6 FL (78-98); MEAN PLATELET VOLUME 9.8 FL (7.4-10.4); MONOCYTES # (AUTO) 1.6 X10'3 (0-0.9); NEUTROPHILS # (AUTO) 15.3 X10'3 (1.8-7.7); NEUTROPHILS % (AUTO) 77.2 % (42-75); PLATELET COUNT 147 X10'3 (140-440); RED BLOOD COUNT 2.85 X10'6 (4.70-6.10); RED CELL DISTRIBUTION WIDTH 16.6 % (11.5-14.5); WHITE BLOOD COUNT 19.9 X10'3 (4.5-11.0)
[2024-11-16 06:38] LABS: ALBUMIN 2.9 G/DL (3.4-5.0); ANION GAP 4 (8-16); BLOOD UREA NITROGEN 21 MG/DL (7-18); BUN/CREATININE RATIO 22.6 (10.0-20.0); CALCIUM 8.2 MG/DL (8.5-10.1); CHLORIDE 105 MMOL/L (99-107); CREATININE 0.93 MG/DL (0.60-1.10); GLUCOSE 117 MG/DL (70-104); MAGNESIUM 2.3 MG/DL (1.5-2.4); SODIUM 141 MMOL/L (135-145); TOTAL CARBON DIOXIDE 32.1 MMOL/L (24-32); eCRCL 74 ML/MIN; eGFR 82 ML/MIN
[2024-11-16] MEDS: furosemide 40mg/4ml inj IV ONE (11:00)
[2024-11-16] MEDS: ondansetron/PF 4mg/2ml inj IV PRN (14:37)
[2024-11-16] MEDS: heparin, porcine 5000 units/ml vial SQ SCH (16:14)
[2024-11-16] MEDS: acetaminophen 325mg tablet PO PRN (20:45)
[2024-11-17] VITALS (9 sets, daily range): BP systolic 102–129; BP diastolic 62–77; PULSE 76–92; RESP 15–28; TEMP 97.3–98; O2SAT 91–96
[2024-11-17 06:52] LABS: BASOPHILS # (AUTO) 0.1 X10'3 (0-0.2); BASOPHILS % (AUTO) 0.6 % (0-1); EOSINOPHILS # (AUTO) 0.6 X10'3 (0-0.9); HEMATOCRIT 26.8 % (42.0-52.0); HEMOGLOBIN 8.8 g/dl (14.0-17.9); LYMPHOCYTES % (AUTO) 19.9 % (21-51); MEAN CORPUSCULAR HEMOGLOBIN 30.1 PG (27.0-31.0); MEAN CORPUSCULAR HGB CONC 32.7 g/dL (33.0-36.5); MEAN CORPUSCULAR VOLUME 91.9 FL (78-98); MEAN PLATELET VOLUME 9.7 FL (7.4-10.4); MONOCYTES % (AUTO) 6.9 % (2-12); NEUTROPHILS # (AUTO) 10.4 X10'3 (1.8-7.7); NEUTROPHILS % (AUTO) 68.6 % (42-75); PLATELET COUNT 172 X10'3 (140-440); RED BLOOD COUNT 2.91 X10'6 (4.70-6.10); RED CELL DISTRIBUTION WIDTH 17.2 % (11.5-14.5); WHITE BLOOD COUNT 15.2 X10'3 (4.5-11.0)
[2024-11-17 07:34] LABS: ALBUMIN 2.9 G/DL (3.4-5.0); ANION GAP 5 (8-16); BLOOD UREA NITROGEN 20 MG/DL (7-18); BUN/CREATININE RATIO 20.8 (10.0-20.0); CALCIUM 8.5 MG/DL (8.5-10.1); CHLORIDE 106 MMOL/L (99-107); CREATININE 0.96 MG/DL (0.60-1.10); GLUCOSE 112 MG/DL (70-104); POTASSIUM 3.9 MMOL/L (3.5-5.1); SODIUM 143 MMOL/L (135-145); eCRCL 72 ML/MIN; eGFR 79 ML/MIN
[2024-11-17 08:39] LABS: NUCLEATED RED BLOOD CELLS 1 /100WBC (0-0); PLATELET ESTIMATE NORMAL; TOTAL CELLS COUNTED 100
[2024-11-17 08:40] LABS: POLYCHROMASIA 1+; TARGET CELLS 1+
[2024-11-17] MEDS: magnesium citrate 296ml oral solution PO ONE (09:05)
[2024-11-18] VITALS (8 sets, daily range): BP systolic 96–125; BP diastolic 54–72; PULSE 84–98; RESP 16–24; TEMP 96.9–98.1; O2SAT 90–96
[2024-11-18 06:10] LABS: BASOPHILS # (AUTO) 0.1 X10'3 (0-0.2); BASOPHILS % (AUTO) 0.8 % (0-1); EOSINOPHILS # (AUTO) 0.5 X10'3 (0-0.9); EOSINOPHILS % (AUTO) 4.1 % (0-6); HEMATOCRIT 25.6 % (42.0-52.0); HEMOGLOBIN 8.4 g/dl (14.0-17.9); LYMPHOCYTES # (AUTO) 2.1 X10'3 (1.1-4.8); MEAN CORPUSCULAR HEMOGLOBIN 30.4 PG (27.0-31.0); MEAN CORPUSCULAR VOLUME 92.3 FL (78-98); MEAN PLATELET VOLUME 9.4 FL (7.4-10.4); NEUTROPHILS # (AUTO) 8.7 X10'3 (1.8-7.7); NEUTROPHILS % (AUTO) 70.1 % (42-75); PLATELET COUNT 186 X10'3 (140-440); RED BLOOD COUNT 2.77 X10'6 (4.70-6.10); RED CELL DISTRIBUTION WIDTH 16.6 % (11.5-14.5); WHITE BLOOD COUNT 12.5 X10'3 (4.5-11.0)
[2024-11-18 06:16] LABS: ALBUMIN 2.6 G/DL (3.4-5.0); ANION GAP 4 (8-16); BLOOD UREA NITROGEN 18 MG/DL (7-18); BUN/CREATININE RATIO 17.8 (10.0-20.0); CALCIUM 8.6 MG/DL (8.5-10.1); CHLORIDE 107 MMOL/L (99-107); CREATININE 1.01 MG/DL (0.60-1.10); GLUCOSE 112 MG/DL (70-104); MAGNESIUM 2.2 MG/DL (1.5-2.4); POTASSIUM 4.1 MMOL/L (3.5-5.1); SODIUM 142 MMOL/L (135-145); TOTAL CARBON DIOXIDE 30.8 MMOL/L (24-32); eCRCL 68 ML/MIN; eGFR 75 ML/MIN
[2024-11-18] MEDS: magnesium citrate 296ml oral solution PO ONE (10:28)
[2024-11-18] MEDS ORDERED: LOP12.5T PO (11:05)
[2024-11-18] MEDS ORDERED: ASPI81TA53 PO (11:05)
[2024-11-18] MEDS ORDERED: HYDR-3972 PO (11:05)
[2024-11-18] MEDS ORDERED: ATOR10TA PO (11:05)
[2024-11-18] MEDS ORDERED: CLOP-32 PO (11:08)
[2024-11-19 02:00] VITALS: BP 131/78; PULSE 95; RESP 23; TEMP 98.5; O2SAT 92
[2024-11-19 07:00] VITALS: BP 120/70; PULSE 91; RESP 20; TEMP 98.8; O2SAT 90
[2024-11-19 07:02] LABS: ALBUMIN 2.8 G/DL (3.4-5.0); ANION GAP 6 (8-16); BLOOD UREA NITROGEN 15 MG/DL (7-18); BUN/CREATININE RATIO 14.7 (10.0-20.0); CALCIUM 8.3 MG/DL (8.5-10.1); CHLORIDE 107 MMOL/L (99-107); CREATININE 1.02 MG/DL (0.60-1.10); GLUCOSE 116 MG/DL (70-104); POTASSIUM 3.6 MMOL/L (3.5-5.1); SODIUM 142 MMOL/L (135-145); TOTAL CARBON DIOXIDE 28.9 MMOL/L (24-32); eCRCL 68 ML/MIN; eGFR 74 ML/MIN
[2024-11-19 08:00] VITALS: RESP 20; O2SAT 92
[2024-11-19 11:00] VITALS: BP 114/80; PULSE 88; RESP 16; TEMP 97.3; O2SAT 94
[2024-11-19] MEDS ORDERED: LOP25T PO (16:32)
[2024-11-19] MEDS ORDERED: ASPI-1265 PO (16:32)
[2024-11-19] MEDS ORDERED: CLOP-32 PO (16:32)
[2024-11-19] MEDS ORDERED: ATOR10TA PO (16:32)
[2024-11-19] MEDS ORDERED: HYDR-3973 PO (16:32)
== END 2024-11-19 15:45 | disposition home or self-care (01) | DRG 233 ==
LOC: ER 17:59 → ED HOLD 20:07 → PCU 3S 11-08 17:02 → CICU 2S 11-13 15:00 → PCU 3S 11-15 14:25
PROVIDERS: ADMIT Internal Medicine; ATTEND Nurse Practitioner Family
PROC: 4A023N7 Measurement of Cardiac Sampling and Pressure, Left Heart, Percutaneous Approach (ICD-10-PCS; 2024-11-09)
PROC: B2111ZZ Fluoroscopy of Multiple Coronary Arteries using Low Osmolar Contrast (ICD-10-PCS; 2024-11-09)
PROC: B2151ZZ Fluoroscopy of Left Heart using Low Osmolar Contrast (ICD-10-PCS; 2024-11-09)
PROC: 021209W Bypass Coronary Artery, Three Arteries from Aorta with Autologous Venous Tissue, Open Approach (ICD-10-PCS; 2024-11-13)
PROC: 06BP4ZZ Excision of Right Saphenous Vein, Percutaneous Endoscopic Approach (ICD-10-PCS; 2024-11-13)
PROC: 5A1221Z Performance of Cardiac Output, Continuous (ICD-10-PCS; 2024-11-13)
PROC: B24BZZ4 Ultrasonography of Heart with Aorta, Transesophageal (ICD-10-PCS; 2024-11-13)
PROC: 02100Z9 Bypass Coronary Artery, One Artery from Left Internal Mammary, Open Approach (ICD-10-PCS; principal; 2024-11-13 08:26)
PROC: 5A0935A Assistance with Respiratory Ventilation, Less than 24 Consecutive Hours, High Flow/Velocity Cannula (ICD-10-PCS; 2024-11-14)
DX: I25.10 Atherosclerotic heart disease of native coronary artery without angina pectoris (principal); I21.4 Non-ST elevation (NSTEMI) myocardial infarction; E78.5 Hyperlipidemia, unspecified; I73.9 Peripheral vascular disease, unspecified; E87.70 Fluid overload, unspecified; E66.812 Obesity, class 2; I10 Essential (primary) hypertension; Z68.37 Body mass index [BMI] 37.0-37.9, adult; Z80.7 Family history of other malignant neoplasms of lymphoid, hematopoietic and related tissues; Z79.899 Other long term (current) drug therapy; Z82.49 Family history of ischemic heart disease and other diseases of the circulatory system
CPT/HCPCS: 0232T; 93306; 93308; 93312; 93325; 93458; 99291; Z7506; Z7508; 36415; 36600; 71045; 71250; 80048; 80053; 80061; 82330; 82435; 82803; 82947; 82948; 83036; 83735; 83880; 84100; 84132; 84295; 84443; 84478; 84484; 85007; 85008; 85018; 85025; 85347; 85379; 85384; 85610; 85730; 86885; 86900; 86901; 86920; 87081; 93005; 93922; 93925; 93970; 94002; 94003; 94010; 94640; 94664; 94668; 94760; 97110; 97116; 97161; 97530; 99152; 99153; A4615; A4618; A6213; A6258; A6449; A7000; A7015; A7048; C1751; C1894; G0378; J0665; J0690; J1644; J1815; J1940; J2003; J2060; J2150; J2250; J2260; J2270; J2274; J2405; J2440; J2704; J2720; J2919; J3010; J3372; J3480; J3490; J7030; J7040; J7050; J7120; P9045; P9047; Q9967